=== PATIENT | male | born 1980 | race Caucasian/White ===

== ENCOUNTER 2017-11-23 12:28 | Emergency (ER) | payer OTHER ==
[~2017-11-23] VITALS: Ht 175.3 cm; Wt 146.2 kg
[2017-11-23 12:30] VITALS: BP 136/84
--- NOTE | 2017-11-23 12:35 | NUR ---
PT AMBULATES TO BED 11, REPORT GIVEN TO SENDY GUZMÁN
--- NOTE | 2017-11-23 12:41 | NUR ---
PT C/O CRAMPING ABD PAIN 01/15 X 4 DAYS, ONE EPISIODE OF BRIGHT RED BLOOD IN STOOL THIS MORNING, SCANT AMOUNT. DENIES N/V. BS ACTIVE X 4Q. PT UNABLE TO EAT TODAY SECONDARY TO ABD PAIN. NAD NOTED/STATED OTHERWISE. PLACED ON ALL MONITORS, VS WNL. DR UPTON AT BEDSIDE TO JENI
[2017-11-23 13:11] LABS: BASOPHILS # (AUTO) 0.1 K/uL (0.00-0.22); BASOPHILS % (AUTO) 0.8 % (0.0-2.0); EOSINOPHILS # (AUTO) 0.3 K/uL (0-0.4); EOSINOPHILS % (AUTO) 3.4 % (0.0-4.0); HEMATOCRIT 46.2 % (36-52); HEMOGLOBIN 16.1 g/dL (12.0-18.0); LYMPHOCYTES # (AUTO) 2.4 K/uL (2.0-11.5); LYMPHOCYTES % (AUTO) 26.8 % (20.5-51.1); MEAN CORPUSCULAR HEMOGLOBIN 29 pg (27-31); MEAN CORPUSCULAR HGB CONC 35 g/dL (33-37); MEAN CORPUSCULAR VOLUME 84.1 fL (80-94); MONOCYTES # (AUTO) 0.6 K/uL (0.8-1.0); MONOCYTES % (AUTO) 7.1 % (1.7-9.3); NEUTROPHILS # (AUTO) 5.6 K/uL (1.8-7.7); NEUTROPHILS % (AUTO) 61.9 % (42.2-75.2); PLATELET COUNT (AUTO) 230 K/uL (140-450); RED BLOOD CELL COUNT(AUTO) 5.49 MIL/uL (4.20-6.10); RED CELL DISTRIBUTION WIDTH 13.8 % (11.6-13.7); WHITE BLOOD COUNT (AUTO) 9.1 K/uL (4.8-10.8)
--- NOTE | 2017-11-23 13:16 | NUR ---
US AT BEDSIDE
[2017-11-23 13:28] LABS: ANION GAP 11.9 (8-16); CARBON DIOXIDE 27.6 mmol/L (21-32); CREATININE 0.9 mg/dL (0.7-1.3); POTASSIUM 3.5 mmol/L (3.5-5.1)
[2017-11-23 13:34] LABS: TOTAL BILIRUBIN 0.4 mg/dL (0.0-1.0)
--- NOTE | 2017-11-23 14:30 | NUR ---
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
[2017-11-23 14:36] LABS: APPEARANCE,URINE CLEAR (CLEAR); BILIRUBIN,URINE NEGATIVE (NEGATIVE); BLOOD, URINE NEGATIVE (NEGATIVE); COLOR,URINE YELLOW (YELLOW); LEUKOCYTE ESTERASE ,URINE NEGATIVE (NEGATIVE); NITRITE, URINE NEGATIVE (NEGATIVE); PH,URINE 5.5 (5.0-9.0); UGLUCOSE NEGATIVE (NEGATIVE)
--- NOTE | 2017-11-23 15:08 | NUR ---
PT CONDITION UNCHANGED FROM PREVIOUS, SITTING UP IN BED GUARDING ABD, DR UPTON AWARE. PENDING URINE.
--- NOTE | 2017-11-23 15:15 | NUR ---
DR UPTON AT BEDSIDE SPEAKING WITH PT
[2017-11-23 15:27] VITALS: BP 132/78
--- NOTE | 2017-11-23 15:27 | NUR ---
Patient discharged with v/s stable. Written and verbal after care instructions given and explained. Patient alert, oriented and verbalized understanding of instructions. Ambulatory with steady gait. All questions addressed prior to discharge. ID band removed. Patient advised to follow up with PMD. Rx of OMEPRAZOLE, ACETAMINOPHEN given. Patient educated on indication of medication including possible reaction and side effects. Opportunity to ask questions provided and answered.
== END 2017-11-23 15:27 | disposition home or self-care (01) ==
LOC: MED 12:28
DX: R07.89 Other chest pain (principal); R10.9 Unspecified abdominal pain
CPT/HCPCS: 36415; 71045; 76705; 80053; 81003; 83690; 85025; 99285; Q0092

== ENCOUNTER 2017-12-06 15:02 | Emergency (ER) | payer OTHER ==
[~2017-12-06] VITALS: Ht 172.7 cm; Wt 142.0 kg
[2017-12-06 15:06] VITALS: BP 166/108
[2017-12-06 16:02] VITALS: BP 155/98
== END 2017-12-06 16:02 | disposition home or self-care (01) ==
LOC: MED 15:02
DX: T42.4X5A Adverse effect of benzodiazepines, initial encounter (principal); T36.0X5A Adverse effect of penicillins, initial encounter; T36.3X5A Adverse effect of macrolides, initial encounter; F41.9 Anxiety disorder, unspecified; Y92.89 Other specified places as the place of occurrence of the external cause
CPT/HCPCS: 99284